=== PATIENT | male | born 1955 | race Caucasian/White ===

== ENCOUNTER 2025-01-01 06:37 | Emergency (ER) | payer MEDICARE ==
[~2025-01-01] VITALS: Ht 167.6 cm; Wt 68.0 kg
[~2025-01-01 06:37] MED LIST: LOSA50 PO; ROSU5 PO
[2025-01-01 07:14] LABS: BASOPHILS ABSOLUTE AUTO 0.07 K/mm3 (0.00-0.23); BASOPHILS PERCENT AUTO 1 % (0-2); EOSINOPHILS ABSOLUTE AUTO 0.34 K/mm3 (0.00-0.68); EOSINOPHILS PERCENT AUTO 4 % (0-6); Hemoglobin 13.7 g/dL (13.5-17.5); IMMATURE GRAN ABSOLUTE AUTO 0.01 K/mm3 (0.00-0.10); IMMATURE GRAN PERCENT AUTO 0 % (0-1); LYMPHOCYTES ABSOLUTE AUTO 2.13 K/mm3 (0.84-5.20); LYMPHOCYTES PERCENT AUTO 28 % (21-46); MONOCYTES PERCENT AUTO 14 % (4-13); Mean Corpuscular HGB 32.2 pg (26.0-34.0); Mean Corpuscular HGB Conc 34.3 g/dL (31.5-36.5); Mean Corpuscular Volume 94 fL (80-100); Mean Platelet Volume 10.4 fL (9.1-12.4); NEUTROPHILS ABSOLUTE AUTO 4.07 K/mm3 (1.96-9.15); NEUTROPHILS PERCENT AUTO 53 % (41-73); Platelet Count 229 K/mm3 (150-400); RDW Coefficient Variation 12.5 % (11.7-14.2); Red Blood Cell Count 4.26 M/mm3 (4.30-5.90); White Blood Cell Count 7.72 K/mm3 (4.00-11.30)
[2025-01-01 07:29] LABS: Albumin, Blood 4.1 g/dL (3.4-5.0); Albumin/Globulin Ratio 1.3 (0.8-1.8); Bilirubin, Total 0.4 mg/dL (0.1-1.0); Bun/Creatinine Ratio 24.3 (12.0-20.0); Calcium, Blood 9.1 mg/dL (8.5-10.1); Creatinine, Blood 1.07 mg/dL (0.60-1.20); Globulin, Blood 3.2 g/dL (2.2-4.0); Magnesium, Blood 2.4 mg/dL (1.6-2.4); Total Protein, Blood 7.3 g/dL (6.4-8.2)
[2025-01-01 09:15] VITALS: BP 145/81
== END 2025-01-01 09:31 | disposition home or self-care (01) ==
LOC: ER 06:37
PROVIDERS: Student in an Organized Health Care Education/Training Program
DX: S01.01XA Laceration without foreign body of scalp, initial encounter (principal); Z88.0 Allergy status to penicillin; Z79.899 Other long term (current) drug therapy; Z86.59 Personal history of other mental and behavioral disorders; W18.30XA Fall on same level, unspecified, initial encounter
CPT/HCPCS: 70450; 72125; 80053; 83735; 85025; 93005; 93010; 99284-25